=== PATIENT | female | born 1995 ===

== ENCOUNTER 2023-08-22 02:13 | Inpatient (IN) | payer SELFPAY ==
[~2023-08-22] VITALS: Ht 172.7 cm; Wt 96.4 kg
[2023-08-22] VITALS (34 sets, daily range): BP systolic 104–130; BP diastolic 51–81
[2023-08-22] MEDS ORDERED: PRENATAL TABLE1 EAC2 PO (03:23)
[2023-08-22] MEDS ORDERED: IRON18 MG PO (03:24)
[2023-08-22 03:58] LABS: Hemoglobin 10.8 g/dL (11.5-16.0); Mean Corpuscular HGB 29.6 pg (26.0-34.0); Mean Corpuscular HGB Conc 32.7 g/dL (31.5-36.5); Mean Corpuscular Volume 90 fL (80-100); Mean Platelet Volume 10.2 fL (9.1-12.4); Platelet Count 199 K/mm3 (150-400); RDW Coefficient Variation 13.7 % (11.7-14.2); RDW Standard Deviation 45.1 fL (35.1-46.3); Red Blood Cell Count 3.65 M/mm3 (3.80-5.20); White Blood Cell Count 10.51 K/mm3 (4.00-11.30)
[2023-08-22 04:27] LABS: BASOPHILS PERCENT MAN 0 % (0-2); EOSINOPHILS PERCENT MAN 1 % (0-6); LYMPHOCYTES % ATYPICAL MANUAL 3 % (0-0); LYMPHOCYTES ABSOLUTE MAN 3.36 K/mm3 (0.84-5.20); LYMPHOCYTES PERCENT MAN 29 % (21-46); MONOCYTES ABSOLUTE MAN 0.73 K/mm3 (0.16-1.47); MONOCYTES PERCENT MAN 7 % (4-13); SEG NEUTROPHILS PERCENT MAN 60 % (41-73); TOTAL CELLS COUNTED 100
[2023-08-23] VITALS (11 sets, daily range): BP systolic 106–119; BP diastolic 55–68
[2023-08-23 10:18] LABS: Hematocrit 28.2 % (33.0-51.0); Hemoglobin 9.4 g/dL (11.5-16.0); Mean Corpuscular HGB 29.7 pg (26.0-34.0); Mean Corpuscular HGB Conc 33.3 g/dL (31.5-36.5); Mean Corpuscular Volume 89 fL (80-100); Mean Platelet Volume 10.4 fL (9.1-12.4); Platelet Count 208 K/mm3 (150-400); RDW Coefficient Variation 13.9 % (11.7-14.2); RDW Standard Deviation 45.2 fL (35.1-46.3); Red Blood Cell Count 3.17 M/mm3 (3.80-5.20); White Blood Cell Count 19.62 K/mm3 (4.00-11.30)
[2023-08-24 04:03] VITALS: BP 115/77
[2023-08-24 08:33] VITALS: BP 116/79
[2023-08-24 12:35] VITALS: BP 112/69
[2023-08-24] MEDS ORDERED: IBUP800 (16:27)
[2023-08-24 17:01] VITALS: BP 110/66
== END 2023-08-24 17:15 | disposition home or self-care (01) | DRG 805 ==
LOC: OBS 02:13 → BC 02:13 → OBS 02:40 → BC 02:41
PROVIDERS: ADMIT Advanced Practice Midwife
PROC: 10E0XZZ Delivery of Products of Conception, External Approach (ICD-10-PCS; principal; 2023-08-22)
PROC: 0KQM0ZZ Repair Perineum Muscle, Open Approach (ICD-10-PCS; 2023-08-22)
PROC: 3E0R3BZ Introduction of Anesthetic Agent into Spinal Canal, Percutaneous Approach (ICD-10-PCS; 2023-08-22)
PROC: 00HU33Z Insertion of Infusion Device into Spinal Canal, Percutaneous Approach (ICD-10-PCS; 2023-08-22)
PROC: 3E033VJ Introduction of Other Hormone into Peripheral Vein, Percutaneous Approach (ICD-10-PCS; 2023-08-22)
DX: O42.013 Preterm premature rupture of membranes, onset of labor within 24 hours of rupture, third trimester (principal); O41.1230 Chorioamnionitis, third trimester, not applicable or unspecified; Z37.0 Single live birth; Z3A.36 36 weeks gestation of pregnancy; Z88.1 Allergy status to other antibiotic agents; Z88.2 Allergy status to sulfonamides; O90.81 Anemia of the puerperium; O70.1 Second degree perineal laceration during delivery
CPT/HCPCS: 36415; 51702; 85025; 85027; 86850; 86900; 86901; 86923; A9270; J0290; J1580; J1885; J2590; J7120